=== PATIENT | male | born 1990 | race African-American/Black ===

== ENCOUNTER 2017-01-05 11:53 | Emergency (ER) | payer OTHER ==
[~2017-01-05] VITALS: Ht 188 cm; Wt 60.3 kg
--- NOTE | ~2017-01-05 | CR63 ---
[facility] A Service of [facility] RADIOLOGY TEXT RESULTS PATIENT: JUJU VALVERDE LOCATION: CFTX : 89 UNIT #: [id number] AGE: [address]: Gracy Aceves APRN SEX: M ORDER DR: [id number] [facility] [address], [place] [address] [id number] E MR#: [id number] Acc #: [id number] NAME: JUJU VALVERDE : 1990 SEX: M STUDY DATE/TIME: 01/05/2017 12:53 UNIT: [facility] ROOM: STUDY DESCRIPTION: CR Chest 2 View Attending Physician: Gracy Aceves A.P.R.N. Ordering Physician: Ed José Santillan M.D. Primary Care Physician: No Primary Care Physician MEDICAL IMAGING REPORT This report is preliminary unless electronic signature is present EXAM Two-view chest. INDICATIONS Cough for 2 days. Fever. TECHNIQUE PA and lateral views the chest. COMPARISON Without comparison. FINDINGS Heart and mediastinal contours normal. Lungs are clear. IMPRESSION Normal chest radiograph. Dictated by... Geovani Mccormick M.D. THIS IS AN ELECTRONICALLY VERIFIED REPORT Geovani Mccormick M.D. at 01/06/2017 11:49 AM LINA/iqra TD: 01/06/2017 11:45 JOB #: [id number] MEDICAL IMAGING REPORT Page 1 of 1 COPY
[2017-01-05 12:55] LABS: INFLUENZA A NEG (NEG); INFLUENZA B NEG (NEG)
== END 2017-01-05 13:40 | disposition home or self-care (01) ==
LOC: CED 11:53 → CFTX 11:53
PROVIDERS: Nurse Practitioner
DX: J20.9 Acute bronchitis, unspecified (principal); J02.0 Streptococcal pharyngitis
CPT/HCPCS: 71020; 87804; 87880; 99283